=== PATIENT | female | born 1995 ===

== ENCOUNTER 2024-06-30 13:41 | Inpatient (IN) | payer BC ==
[2024-06-30] MEDS ORDERED: ePHEDrine 50 MG/ML SDV IVPUSH PRN (15:13)
[2024-06-30] MEDS ORDERED: Sodium Chloride 0.9% 10 ML Syringe FLUSH PRN (15:14)
[2024-06-30] MEDS ORDERED: Lidocaine 1% 50 ML MDV INJECT PRN (15:14)
[2024-06-30] MEDS ORDERED: Sodium Chloride 0.9% 2.5 ML Syringe FLUSH PRN (15:14)
[2024-06-30] MEDS ORDERED: Water For Irrigation,Sterile 1,000 ML Container IRR PRN (15:14)
[2024-06-30] MEDS ORDERED: Carboprost Tromethamine 250 MCG/1 mL Vial IM PRN (15:14)
[2024-06-30] MEDS ORDERED: Misoprostol 25 MCG (1/4 of 100 MCG) Tab PO PRN (15:14)
[2024-06-30] MEDS ORDERED: Sodium Chloride 0.9% 20 ML SDV IV PRN (15:14)
[2024-06-30] MEDS ORDERED: Butorphanol 2 MG/ML SDV IVPUSH PRN (15:14)
[2024-06-30] MEDS ORDERED: Misoprostol 200 MCG Tab PO PRN (15:14)
[2024-06-30] MEDS ORDERED: Oxytocin/0.9 % Sodium Chloride 30 UNIT/500 ML BAG IV SCH (15:15)
[2024-06-30] MEDS ORDERED: dexmedeTOMIDine HCl 200 MCG/2 ML SDV EPIDUR SCH (15:15)
[2024-06-30] MEDS ORDERED: Ondansetron 4 MG/2 ML SDV IVPUSH PRN (15:15)
[2024-06-30 16:02] LABS: HEMATOCRIT 38.9 % (37.0-47.0); HEMOGLOBIN 12.7 g/dL (12.0-16.0); MEAN CORPUSCULAR HGB CONC 32.6 g/dL (32.0-36.0); MEAN CORPUSCULAR VOLUME 79.7 fL (83.0-99.0); PLATELET COUNT,PLT 376 K/uL (150-400); RED BLOOD CELL COUNT 4.88 M/uL (4.10-5.30); WHITE BLOOD CELL COUNT,WBC 10.11 K/uL (3.9-11.3)
[2024-06-30] MEDS: Misoprostol 25 MCG (1/4 of 100 MCG) Tab PO PRN (17:00)
[2024-06-30] MEDS: Lactated Ringers 1,000 ML IV SCH (21:58)
[2024-06-30] MEDS: Ropivacaine HCl/PF 400 MG in Premix Bag 1 BAG EPIDUR SCH (22:47)
[2024-07-01] MEDS: Terbutaline 1 MG/ML SDV SUBCUT PRN (00:21)
[2024-07-01] MEDS: Phenylephrine HCl In 0.9% NaCl 1 MG/10 ML Syringe IVPUSH PRN (00:37)
[2024-07-01] MEDS: Oxytocin/0.9 % Sodium Chloride 30 UNIT/500 ML BAG IV SCH (02:02)
[2024-07-01] MEDS: Methylergonovine 0.2 MG/1 ML Amp IM PRN (10:30)
[2024-07-01] MEDS ORDERED: Witch Hazel Medicated Pads 40/Jar TOP PRN (12:56)
[2024-07-01] MEDS ORDERED: Benzocaine/Menthol 20%-0.5% Spray 78 GM Cannister TOP PRN (12:56)
[2024-07-01] MEDS ORDERED: Lanolin 100% Cream 7 GM Tube TOP PRN (12:56)
[2024-07-01] MEDS ORDERED: Docusate Sodium 100 MG Cap PO PRN (12:56)
[2024-07-01] MEDS ORDERED: oxyCODONE 5 MG Tab PO PRN (12:56)
[2024-07-01] MEDS: Ibuprofen 800 MG Tab PO PRN (17:14)
[2024-07-02 05:54] LABS: HEMATOCRIT 31.9 % (37.0-47.0); HEMOGLOBIN 10.4 g/dL (12.0-16.0)
[2024-07-02] MEDS: Acetaminophen 500 MG Tab PO PRN (09:14)
[2024-07-03] MEDS ORDERED: Prenatal Multivitamin with Calcium/Folic Acid/Iron Tab PO SCH (09:00)
== END 2024-07-02 14:20 | disposition home or self-care (01) | DRG 560 ==
LOC: MW.OB 13:41 → MW.OBCHECK 13:41 → MW.OB 15:14 → MW.OBCHECK 15:14 → OBSVTOIN 07-01 10:11 → MW.OB 07-01 14:59
PROVIDERS: ADMIT Obstetrics & Gynecology; ATTEND Obstetrics & Gynecology
PROC: 10E0XZZ Delivery of Products of Conception, External Approach (ICD-10-PCS; principal; 2024-07-01)
PROC: 3E0DXGC Introduction of Other Therapeutic Substance into Mouth and Pharynx, External Approach (ICD-10-PCS; 2024-07-01)
PROC: 3E0R3BZ Introduction of Anesthetic Agent into Spinal Canal, Percutaneous Approach (ICD-10-PCS; 2024-07-01)
PROC: 00HU33Z Insertion of Infusion Device into Spinal Canal, Percutaneous Approach (ICD-10-PCS; 2024-07-01)
DX: O42.02 Full-term premature rupture of membranes, onset of labor within 24 hours of rupture (principal); O77.0 Labor and delivery complicated by meconium in amniotic fluid; Z37.0 Single live birth; Z3A.39 39 weeks gestation of pregnancy
CPT/HCPCS: 36415; 51702; 59025; 59409; 76815; 76815-26; 84112; 85014; 85018; 85027; 86592; 86850; 86900; 86901; A9270-GY; J2210; J2371; J2590; J2795; J7120